=== PATIENT | female | born 1940 | race Caucasian/White ===

== ENCOUNTER 2025-04-03 05:14 | Emergency (ER) | payer MEDICARE ==
[~2025-04-03] VITALS: Ht 160 cm; Wt 50.3 kg
[2025-04-03 05:30] VITALS: TEMP 98.6
[2025-04-03] MEDS: TETANUS/DIPHTHERIA TOX ADULT 0.5 ML SYR IM ONE (07:24)
[2025-04-03 09:10] VITALS: PULSE 86; RESP 16; O2SAT 98
== END 2025-04-03 09:14 | disposition home or self-care (01) ==
LOC: ER 06:12
DX: S01.01XA Laceration without foreign body of scalp, initial encounter (principal); W18.09XA Striking against other object with subsequent fall, initial encounter; Y92.89 Other specified places as the place of occurrence of the external cause; F03.90 Unspecified dementia, unspecified severity, without behavioral disturbance, psychotic disturbance, mood disturbance, and anxiety
CPT/HCPCS: 70450; 72125; 90471; 90714; 99283